=== PATIENT | female | born 1950 | race Caucasian/White ===

== ENCOUNTER → 2020-11-22 13:34 | Outpatient (BNVA) | payer MEDICARE, OTHER, SELFPAY | PROVIDERS: PCP Family Medicine; Referring Provider Family Medicine; Visit Provider Psychiatry & Neurology Neurology | DX: R68.89 Other general symptoms and signs (principal); I95.1 Orthostatic hypotension; R26.89 Other abnormalities of gait and mobility | CPT/HCPCS: 99205 ==

== ENCOUNTER 2020-11-30 01:11 | Outpatient (CLI) | payer MEDICARE, OTHER, SELFPAY ==
--- NOTE | 2020-12-04 16:40 | PDOC.EEG_ITS ---
Neurology EEG EEG: [facility] Department of Neurology LONG-TERM AMBULATORY EEG REPORT Date of Recordin11/30/20 at 15:42:15 to 10/01/20 at 13:53:33 Interpreting Physician: Dr. Courtney Russell PCP/Referring Provider: Dr. Hurd Reason for study: Ms. Mcpherson is a 70 year-old woman with recent spells concerning for seizure. Current Medications: Home Medications Medication Instructions Recorded Confirmed Type Proventil Hfa 1 - 2 puff INHALATION Q4H PRN 03/09/17 11/22/20 History inhaler dicyclomine [Bentyl] 20 mg PO QID tab-cap 03/09/17 11/22/20 History ibuprofen 600 mg PO Q6H PRN tab-cap 03/09/17 11/22/20 History levothyroxine [Synthroid] 50 mcg PO DAILY tab-cap 03/09/17 11/22/20 History lorazepam [Ativan] 1 mg PO 03/09/17 11/22/20 History metformin 1,000 mg PO BID tab-cap 03/09/17 11/22/20 History montelukast [Singulair] 10 mg PO DAILY tab-cap 03/09/17 11/22/20 History naloxone [Narcan Nasal [place]] 4 mg NS PRN #2 spray 03/09/17 11/22/20 History oxycodone 20 mg PO 03/09/17 11/22/20 History paroxetine HCl 10 mg PO 03/09/17 11/22/20 History simvastatin 40 mg PO DAILY tab-cap 03/09/17 11/22/20 History trazodone 100 mg PO DAILY tab-cap 03/09/17 11/22/20 History albuterol sulfate 90 mcg/actuation 2 puff INHALATION .4HR PRN g 07/03/20 11/22/20 History aerosol inhaler alendronate 70 mg tablet 70 mg PO QWEEK 07/03/20 11/22/20 History bupropion HCl 300 mg 24 hr tablet, 300 mg PO QAM 07/03/20 11/22/20 History extended release ergocalciferol (vitamin D2) 400 10 mcg PO DAILY 07/03/20 11/22/20 History unit capsule fluticasone 500 mcg-salmeterol 50 1 inh INHALATION BID 07/03/20 11/22/20 History mcg/dose blistr powdr for inhalation lisinopril 10 mg tablet 5 mg PO DAILY tab-cap 07/03/20 11/22/20 History omeprazole 10 mg capsule,delayed 40 mg PO DAILY tab-cap 07/03/20 11/22/20 History release gabapentin 300 mg capsule 300 mg PO TID 11/22/20 11/22/20 History mecobalamin (vitamin B12) 1,000 500 mcg PO DAILY tab 11/22/20 11/22/20 History mcg chewable tablet METHODS: An 18-channel digitized electroencephalogram was recorded in the ambulatory setting with video. The 10/20 international system of electrode placement was used and bipolar and referential electrode montages were recorded. In addition to EEG the patient was monitored for EKG and by video. Activation procedures of photic stimulation and hyperventilation were performed if applicable. The duration of the recording was ~21 hours. DESCRIPTION OF EEG: Waking background activity: During maximal wakefulness a 9-Hz posterior background rhythm was present which was well-modulated, symmetrical, reactive to eye opening, and of moderate voltage. Faster frequencies were present in the bilateral anterior head regions. There was a normal anterior-posterior voltage gradient. Drowsy and sleeping background activity: During drowsiness, there was attenuation of the posterior dominant background rhythm and vertex waves. Normal stage II and III sleep was present with symmetrical sleep spindles, K- complexes, and vertex waves with slowing of the background rhythm to delta/theta frequencies. REM sleep manifested by rapid lateral eye movements and faster background rhythms was recorded. Arousal was unremarkable. Interictal abnormalities: none. There was a single T3 sharp early on in the recording that was not clearly epileptic (11/30/20 at 16:02:06). This was not seen again. Ictal findings: Event #1 on 11/30/20 at 19:53:31 -Clinical manifestations: None reported. -EEG findings: Normal awake EEG. Event #2 on 12/01/20 at 12:17:09 -Clinical manifestations: None reported. -EEG findings: Normal awake EEG. Event #3 on 12/01/20 at 13:47:25 -Clinical manifestations: None reported. -EEG findings: No EEG data available to review. Activating Procedures: Photic stimulation was performed which produced no driving response. Hyperventilation was not performed. EKG: EKG revealed normal sinus rhythm. INTERPRETATION: This long-term EEG is normal during the awake and sleep states as well as during the activation procedure. Three button pushes above but no clinical symptoms reported. The EEG was normal during the first 2 events but was disconnected for the third. PRIOR EEG: none CLINICAL CORRELATION: No focal regions of cerebral dysfunction or epileptiform activity was present. Epilepsy remains a clinical diagnosis and a normal EEG does not rule out epilepsy. Clinical correlation is advised. Courtney Russell MD
== END 2020-11-30 01:12 | disposition home or self-care (01) ==
LOC: RT 01:12
PROVIDERS: PCP Family Medicine; Visit Provider Psychiatry & Neurology Neurology
DX: R56.9 Unspecified convulsions (principal); R68.89 Other general symptoms and signs
CPT/HCPCS: 95714; 95720

== ENCOUNTER → 2021-01-02 07:15 | Outpatient (BNVA) | payer MEDICARE, OTHER, SELFPAY | PROVIDERS: PCP Family Medicine; Referring Provider Family Medicine; Visit Provider Psychiatry & Neurology Neurology | DX: R69 Illness, unspecified (principal) ==

== ENCOUNTER → 2021-03-14 07:37 | Outpatient (BNVA) | payer MEDICARE, OTHER, SELFPAY | PROVIDERS: PCP Family Medicine; Referring Provider Family Medicine; Visit Provider Psychiatry & Neurology Neurology | DX: I95.1 Orthostatic hypotension (principal); R26.89 Other abnormalities of gait and mobility | CPT/HCPCS: 99443 ==

== ENCOUNTER → 2021-05-22 14:33 | Outpatient (BNVA) | payer MEDICARE, OTHER, SELFPAY | PROVIDERS: PCP Family Medicine; Referring Provider Family Medicine; Visit Provider Psychiatry & Neurology Neurology | DX: I95.1 Orthostatic hypotension (principal); R26.89 Other abnormalities of gait and mobility; I10 Essential (primary) hypertension; E11.9 Type 2 diabetes mellitus without complications | CPT/HCPCS: 99214 ==

== ENCOUNTER → 2021-07-25 08:12 | Outpatient (BNVA) | payer MEDICARE, OTHER, SELFPAY | PROVIDERS: PCP Family Medicine; Referring Provider Family Medicine; Visit Provider Psychiatry & Neurology Neurology | DX: I95.1 Orthostatic hypotension (principal); R26.9 Unspecified abnormalities of gait and mobility; I10 Essential (primary) hypertension; E11.9 Type 2 diabetes mellitus without complications | CPT/HCPCS: 99442 ==